=== PATIENT | female | born 1995 | race Caucasian/White ===

== ENCOUNTER 2021-07-18 17:51 | Inpatient (IN) ==
[2021-07-18] MEDS ORDERED: FLUARIX QUADRIVALENT 0.5 ML SYR IM ONE (18:25)
[2021-07-18] MEDS ORDERED: LACTATED RINGER'S 1,000 ML IV PRN (18:49)
[2021-07-18] MEDS ORDERED: PENICILLIN G POTASSIUM 6 MU in DEXTROSE 5% 250 ML IV STA (18:49)
[2021-07-18] MEDS ORDERED: OXYTOCIN 30 UNITS/500 ML BAG IV PRN ×2 (18:49→23:52)
--- NOTE | 2021-07-18 18:54 | History & Physical Report ---
Date of Service July 18, 2021 Assessment & Plan (1) : (2) Group B streptococcal infection during : Plan: 25 y/o at 39 2/7 wga presenting in labor VSS Fetus cat 1 Labor - plan arom when 2nd dose of pcn starts if not srom then GBS +, will start pcn epidural prn covid neg yesterday History of Present Illness Chief Complaint: contractions Primary Care Provider: NO PCP 25 y/o at 39 2/7 wga w/ [facility] 4/ by LMP presents w/ ctx increasing in frequency and intensity. Notes bloody show, but no LOF or VB otherwise PNI: GBS+ G1 2013 at 40 wks G2 2015 at 38 wks G3 2019 at 40 wks G4 current q28-35d cycles 11/2020 neg cytology Denies hx STIs Allergies Allergy/AdvReac Type Severity Reaction Status Date / Time bee venom protein (honey bee) Allergy Mild SWELLING Verified 07/15/21 15:36 AT SITE OF STING diphtheria,pertussis Allergy Unknown TDAP Verified 07/18/21 18:04 (acellular),te Home Medications Medication Instructions Recorded Confirmed Type prenat.vits,claus,oig-eqbd-mfjth 1 tab PO DAILY 07/17/21 07/18/21 History Patient History Medical History History of chicken pox Surgical History History of cholecystectomy Family History Mother Hypothyroid Denies family history of Ovarian cancer Breast cancer Colorectal cancer Social History Smoking Status: Never smoker Hx Alcohol Use: No Hx Substance Use: No Preferred Language: Kyrgyz Communication Ability: Effective Rehabilitation Services Director Required: No Beliefs That Will Affect Care: None marital status: marital status details: Nick Colin (31) [phone] Current Living Situation: Spouse Current Living Situation Comment: lives with spouse, 3 children, dog current occupational status: employed and student current occupation: [employer], [employer] part-time Other Information That Helps Us Care for You: No Feels Safe at Home: Yes Safety Concerns: Feels Safe At This Time Assistive Devices: None Physical Exam Genitourinary: OB Exam Abdomen: + vertex and + estimated weight (7lb) Manual OB Exam: + cervical dilation 5 cm, + cervical effacement 90% and + station -2 OB Exam Monitor Tracing: + external FHT monitor used, + external uterine monitor used (q5-8) and + category I (135/mod/+accel/-decel) Results & Data ([facility]) Vital Signs (Past 12 Hours) Vital Signs Temp Pulse Resp BP 07/18/21 18:05 98.1 F 96 H 20 117/70 07/18/21 17:58 96 H 117/70 07/18/21 17:56 98.1 F 20 Laboratory Results OB Labs: Blood Type O Positive 12/15/20 Antibody Screen NEGATIVE 12/15/20 Hemoglobin 11.6 g/dL (12.0-16.0) L 05/06/21 Hematocrit 36.3 % (37-47) L 05/06/21 Mean Corpuscular Volume 87.1 fL (80-100) 12/15/20 Platelet Count 246 K/uL (130-400) 12/15/20 Rubella IgG Antibody Immune (Immune) 12/15/20 Rapid Plasma Reagin Nonreactive (Nonreactive) 12/15/20 Hepatitis B Surface Antigen Neg (Neg) 12/15/20 HIV (1&2) Ab and P24 Ag, 4th Gener Neg (Neg) 12/15/20 Glucose 1 Hour 50 gm Load 164 mg/dl (70-130) H 05/06/21 OB Optional Labs: Chlamydia trachomatis RNA NOT DETECTED (NOT DETECTED) 12/15/20 Neisseria gonorrhoeae RNA NOT DETECTED (NOT DETECTED) 12/15/20 Labs Reviewed: cfDNA--> low risk declines msafp cf/sma negative GBS positive--mln Diagnostic Findings post plac Coding Level of Care Code None Diagnoses Z34.90 Group B streptococcal infection during O98.819; B95.1
[2021-07-18] MEDS ORDERED: BUPIVACAINE 0.25% 30 ML VIAL ONE (18:58)
[2021-07-18] MEDS ORDERED: fentaNYL 2MCG/ML ROPIVACAINE 1.25MG/ML 100 ML BAG EPI ONE (18:58)
[2021-07-18] MEDS ORDERED: ePHEDrine sulfate 50 MG/ML AMP ONE (18:58)
[2021-07-18] MEDS ORDERED: SODIUM CHLORIDE 0.9% INJ 10 ML VIAL ONE (18:58)
[2021-07-18] MEDS ORDERED: fentaNYL citrate 100 MCG/2 ML VIAL ONE (18:58)
[2021-07-18 19:10] LABS: Hematocrit (blood only) 33.7 % (37-47); Hemoglobin 10.9 g/dL (12.0-16.0); Mean Corpuscular Hemoglobin 27.5 pg (25-34); Mean Corpuscular Hgb Conc 32.3 g/dL (32-36); Mean Corpuscular Volume 84.9 fL (80-100); Platelet Count 229 K/uL (130-400); RDW Coefficient of Variation 13.9 % (11.5-14.5); RDW Standard Deviation 43.1 fL (36.4-46.3); Red Blood Count 3.97 M/uL (4.2-5.4); White Blood Count 11.24 K/uL (4.8-10.8)
[2021-07-18] MEDS ORDERED: fentaNYL 2MCG/ML ROPIVACAINE 1.25MG/ML 100 ML BAG EPI PRN (19:53)
[2021-07-18] MEDS ORDERED: NALOXONE HCL 1 MG in SODIUM CHLORIDE 0.9% 1000ML 1,000 ML IV PRN (19:53)
[2021-07-18] MEDS ORDERED: diphenhydrAMINE 50 MG/ML VIAL IV PRN (19:53)
[2021-07-18] MEDS ORDERED: ePHEDrine sulfate 50 MG/ML AMP IV PRN (19:53)
[2021-07-18] MEDS ORDERED: NALOXONE HCL 0.4 MG/1 ML VIAL/CARP IV PRN (19:53)
[2021-07-18] MEDS ORDERED: NALBUPHINE HCL INJ 10 MG/ML AMP IV PRN (19:53)
[2021-07-18] MEDS ORDERED: ONDANSETRON INJ 2 MG/ML 2 ML VIAL IV PRN (19:53)
--- NOTE | 2021-07-18 19:55 | Anesthesiology Consultation ---
Date of Service July 18, 2021 Assessment & Plan Chart Review Chart Review: Patient NOT seen in Pre Admission Testing and Acceptable Risk for Labor Epidural Consults Requested none ASA ASA2 Proposed Anesthesia Anesthesia Type: Labor Epidural and CSE Risk / Benefits Reviewed With: PT / POA / Parent / Guardian, Accepts Plan and Informed Consent Obtained History Height/Weight Height: 5 ft 6 in Weight: 73.028 kg Allergies Allergy/AdvReac Type Severity Reaction Status Date / Time bee venom protein (honey bee) Allergy Mild SWELLING Verified 07/15/21 15:36 AT SITE OF STING diphtheria,pertussis Allergy Unknown TDAP Verified 07/18/21 18:04 (acellular),te Medications Home Medications Medication Instructions Recorded Confirmed Last Taken prenat.vits,claus,cst-cffd-dphvj 1 tab PO DAILY 07/17/21 07/18/21 07/18/21 09:30 Active Medications Generic Name Dose Route Start Last Admin Trade Name Freq PRN Reason Stop Dose Admin Lactated Ringer's 1,000 mls @ 125 mls/hr 07/18/21 18:49 07/18/21 19:18 Lr IV 07/20/21 18:48 0 mls/hr .Q8H PRN Infusion L&D Protocol Protocol NPO Date Last Intake of Fluids: 07/18/21 Time Last Intake of Fluids: 19:00 Date Last Intake of Solids: 07/18/21 Time Last Intake of Solids: 15:00 Past Medical History Medical History History of chicken pox Exercise / Class Metabolic Activity II 4-5 Yardwork/Stairs/Walk up hill Past Family History Family History Mother Hypothyroid Denies family history of Ovarian cancer Breast cancer Colorectal cancer Past Surgical History Surgical History History of cholecystectomy Past Anesthesia History No Hx of Anesthesia Complications and No Family Hx of Anesthesia Complications History of PONV No Hx of PONV and No Hx of Motion Sickness Social History Smoking Status: Never smoker Hx Alcohol Use: No Hx Substance Use: No substance use type: does not use Review of Systems no chest pain or sob Physical Exam Vital Signs Last Vital Signs Temp 36.6 C 07/18/21 18:58 Pulse 76 07/18/21 19:49 Resp 20 07/18/21 18:58 BP 127/88 07/18/21 18:57 Pulse Ox 100 07/18/21 19:49 ENMT Mouth: no TMJ abnormality Thyromental Distance: > or= 3.5 Finger Breadths Mallampati Class: II Neck normal visual inspection Respiratory normal respiratory effort Auscultation: lungs clear to auscultation bilaterally Cardiovascular Rate/Rhythm: regular rate and regular rhythm Musculoskeletal Spine: normal cervical ROM Neurologic moves all extremities Psychiatric Orientation: alert and oriented x 3 Testing Laboratory Results 07/18/21 19:02
[2021-07-18] MEDS ORDERED: PENICILLIN G POTASSIUM 3 MU in DEXTROSE 5% 100 ML IV PRN (21:49)
--- NOTE | 2021-07-18 23:09 | Labor Progress Brief Note ---
Date of Service July 18, 2021 Subjective Comfortable w/ epidural, feeling occ pressure Assessment & Plan (1) : (2) Group B streptococcal infection during : Plan: 25 y/o at 39 2/7 wga presenting in labor VSS Fetus cat 1 Labor - s/p arom GBS +, pcn adequate epidural in place covid neg yesterday Physical Exam Genitourinary: Manual OB Exam: + cervical dilation 7 cm, + cervical effacement 90%, + station 0 and + amniotic fluid (AROM clear) OB Exam Monitor Tracing: + external FHT monitor used, + external uterine monitor used (q4) and + category I (125/mod/+accel/-decel) Results & Data ([facility]) Vital Signs (Past 12 Hours) Vital Signs Temp Pulse Resp BP Pulse Ox 07/18/21 23:04 98 H 124/79 97 07/18/21 22:59 74 95 07/18/21 22:54 83 96 07/18/21 22:50 74 94 07/18/21 22:49 71 121/66 94 07/18/21 22:44 81 95 07/18/21 22:40 76 94 07/18/21 22:39 75 96 07/18/21 22:34 77 116/68 95 07/18/21 22:32 74 94 07/18/21 22:30 18 07/18/21 22:29 70 95 07/18/21 22:24 71 95 07/18/21 22:19 70 96 07/18/21 22:18 68 94 07/18/21 22:17 70 112/65 07/18/21 22:14 68 95 07/18/21 22:09 67 95 07/18/21 22:06 70 94 07/18/21 22:04 70 96 07/18/21 22:02 65 110/63 07/18/21 21:59 72 94 07/18/21 21:54 69 96 07/18/21 21:49 84 98 07/18/21 21:48 96 H 121/75 07/18/21 21:44 70 100 07/18/21 21:39 79 97 07/18/21 21:34 70 99 07/18/21 21:33 71 106/71 07/18/21 21:30 18 07/18/21 21:29 71 97 07/18/21 21:24 84 96 07/18/21 21:19 86 94 07/18/21 21:18 78 109/55 L 93 07/18/21 21:14 72 96 07/18/21 21:09 73 95 07/18/21 21:04 83 93 07/18/21 21:02 66 115/58 L 07/18/21 21:01 80 20 94 07/18/21 20:59 81 94 07/18/21 20:55 83 94 07/18/21 20:54 78 93 07/18/21 20:50 97.9 F 76 94 07/18/21 20:49 71 94 07/18/21 20:45 75 109/58 L 07/18/21 20:44 77 96 07/18/21 20:43 72 94 07/18/21 20:41 75 112/61 07/18/21 20:39 90 96 07/18/21 20:36 71 111/75 07/18/21 20:34 90 96 07/18/21 20:31 72 113/78 94 07/18/21 20:30 18 07/18/21 20:29 82 95 07/18/21 20:24 83 94 07/18/21 20:23 80 94 07/18/21 20:20 75 115/64 07/18/21 20:19 80 95 07/18/21 20:17 80 108/58 L 07/18/21 20:16 82 115/60 07/18/21 20:15 18 07/18/21 20:14 77 97 07/18/21 20:10 76 18 108/56 L 07/18/21 20:09 80 98 07/18/21 20:08 81 101/55 L 07/18/21 20:07 84 90 07/18/21 20:05 18 07/18/21 20:04 70 99 07/18/21 20:02 86 93 07/18/21 19:59 82 98 07/18/21 19:54 81 100 07/18/21 19:49 76 100 07/18/21 19:44 81 100 07/18/21 19:39 76 100 07/18/21 19:34 73 99 07/18/21 18:58 97.9 F 20 07/18/21 18:57 93 H 127/88 07/18/21 18:05 98.1 F 96 H 20 117/70 07/18/21 17:58 96 H 117/70 07/18/21 17:56 98.1 F 20 Coding Level of Care Code None Diagnoses Z34.90 Group B streptococcal infection during O98.819; B95.1
[2021-07-18] MEDS ORDERED: miSOPROStoL 200 MCG TAB PR ONE (23:52)
[2021-07-18] MEDS ORDERED: BENZOCAINE 20% AER SPR 82.5 GM CAN EXT PRN (23:52)
[2021-07-18] MEDS ORDERED: ACETAMINOPHEN 325 MG TAB PO PRN (23:52)
[2021-07-18] MEDS ORDERED: IBUPROFEN 600 MG TAB PO PRN (23:52)
[2021-07-18] MEDS ORDERED: HYDROCORTISONE ACETATE 25 MG SUPP PR PRN (23:52)
[2021-07-18] MEDS ORDERED: DIPHTHERIA/TETANUS/PERTUSSIS 0.5 ML SYR/VIAL IM ONE (23:52)
--- NOTE | 2021-07-18 23:53 | Delivery Summary ---
Vaginal Delivery Summary Date of Service July 18, 2021 Vaginal Delivery Summary [facility] PREOPERATIVE DIAGNOSIS: 1. Single intrauterine at 39 2/7 wga 2. Labor 3. GBS+ POSTOPERATIVE DIAGNOSIS: 1. Single intrauterine at 39 2/7 wga 2. Labor 3. GBS+ 4. Delivered PROCEDURE: 1. Normal spontaneous vaginal delivery. SURGEON: Carlyn Claros MD ANESTHESIA: Epidural. ESTIMATED BLOOD LOSS: 300 mL FLUIDS: Continuous LR. URINE OUTPUT: None. COMPLICATIONS: None. CONDITION: Stable. INDICATIONS: 25 y/o at 39 2/7 wga presented with contractions increasing in frequency and intensity. Denied LOF, VB. She was checked and found to be 5cm. She was started on penicillin for GBS prophylaxis and received an epidural for pain control. Once penicillin treatment was adequate, she underwent artificial rupture of membranes at 7cm and approximately 30 minutes later was found to be complete and desired to push FINDINGS: A viable male , weight pending with Apgars of 8 and 9 at 1 and 5 minutes respectively. SPECIMEN: Cord blood OPERATIVE REPORT: The patient progressed to 10 cm, 100% effaced and +2 station, pushed over intact perineum with anesthesia to deliver a viable male infant, weight and Apgars as above. Head of delivered in YANELY position. No nuchal cord was present. Body and shoulders were delivered without difficulty. was delivered to maternal abdomen and nursing staff. Delayed cord clamping was performed for 60 seconds. Cord was clamped and cut. Cord blood was obtained. Placenta delivered spontaneously intact with 3-vessel cord. IV oxytocin and fundal massage were given however there was noted to be some uterine atony so bimanual massage and 1000mcg cytotec PA was placed for excellent hemostasis. Vagina, cervix, perineum, and placenta were inspected. Few hemostatic vaginal abrasions were noted and not needed to be repaired. Sponge and needle counts correct x2. No sponges were left behind. Mother and stable in immediate period. [facility] Vaginal Delivery Charge Vaginal Delivery Codes: 76500 global code for the antepartum, delivery, and post- Delivery Type Details: [facility]
[2021-07-19 07:15] LABS: Hemoglobin 10.2 g/dL (12.0-16.0); Mean Corpuscular Hgb Conc 31.9 g/dL (32-36); Mean Corpuscular Volume 84.7 fL (80-100); Mean Platelet Volume 10.6 fL (7.4-10.4); Platelet Count 209 K/uL (130-400); RDW Standard Deviation 43.1 fL (36.4-46.3); Red Blood Count 3.78 M/uL (4.2-5.4); White Blood Count 12.36 K/uL (4.8-10.8)
--- NOTE | 2021-07-19 07:28 | Obstetrical Progress Note ---
Date of Service July 19, 2021 Assessment & Plan (1) Encounter for care and examination after delivery: Plan: 25 yo PPD1 s/p at 39 2/7 weeks. -Continue routine care -Vitals reviewed- HDS, afebrile -O+, GBS+, treated with pcn, Rubella immune -Encourage ambulation, regular diet -Pain control with ibuprofen, acetaminophen PRN -Encourage -F/u in 6 weeks withOB, likely d/c tomorrow. Admission and Anticipated Discharge Date Admission Date: July 18, 2021 Supervising Physician Co-Signing Physician Notes Resident Physician Supervision Note: I interviewed and examined the patient. Discussed with Dr. Bell and agree with findings and plan as documented in the note. Any exceptions or clarifications are listed here: PP1 s/p , doing well. VSS, exam benign and wnl. Meeting pp milestones, plan for d/c tomorrow Documented By: Carlyn Claros MD Subjective 25 yo PPD1 s/p at 39 2/7 weeks. Pt doing well and lying with at the time of exam. Breasting feeding well w/o difficulty. Ambulating and voiding well. Lochia mild. Eatin and drinking. Pt has no pain. Has no other complaints at this time. Review of Systems Review of Systems: All systems reviewed & are unremarkable except as noted in HPI & below Physical Exam Physical Exam: General: Alert, oriented, no acute distress Cardiac: Regular rate and rhythm, normal S1, S2. No murmurs appreciated. Respiratory: Clear to auscultation b/l with good air flow entry, symmetric chest rise and fall. No wheezes or crackles. No increased work of breathing or accessory muscle use Abdomen: Soft, nontender, nondistended. Fundus firm and palpable at level of umbilicus. No guarding or rebound. Skin: No rashes or lesions Extremities: Warm, dry, well-perfused with capillary refill <2s b/l. No lower extremity edema, erythema or swelling. Negative Tato's sign b/l. Results & Data ([facility]) Vital Signs (Past 12 Hours) Vital Signs Temp Pulse Pulse Resp BP BP Pulse Ox 07/19/21 04:30 36.6 C 73 18 106/69 07/19/21 02:00 36.7 C 86 18 120/67 07/19/21 01:45 75 20 110/60 07/19/21 01:30 65 103/55 L 07/19/21 01:15 65 18 103/55 L 07/19/21 01:00 64 107/68 07/19/21 00:45 84 20 109/63 07/19/21 00:30 20 116/58 L 07/19/21 00:15 65 20 121/66 07/19/21 00:00 65 18 113/59 L 07/18/21 23:45 87 18 127/57 L 07/18/21 23:39 96 H 94 07/18/21 23:37 82 94 07/18/21 23:34 91 H 94 07/18/21 23:31 18 07/18/21 23:29 97 H 99 07/18/21 23:24 85 96 07/18/21 23:19 76 96 07/18/21 23:17 67 119/63 07/18/21 23:14 66 96 07/18/21 23:10 71 94 07/18/21 23:09 72 96 07/18/21 23:04 98 H 124/79 97 07/18/21 23:00 36.8 C 18 07/18/21 22:59 74 95 07/18/21 22:54 83 96 07/18/21 22:50 74 94 07/18/21 22:49 71 121/66 94 07/18/21 22:44 81 95 07/18/21 22:40 76 94 07/18/21 22:39 75 96 07/18/21 22:34 77 116/68 95 07/18/21 22:32 74 94 07/18/21 22:30 18 07/18/21 22:29 70 95 07/18/21 22:24 71 95 07/18/21 22:19 70 96 07/18/21 22:18 68 94 07/18/21 22:17 70 112/65 07/18/21 22:14 68 95 07/18/21 22:09 67 95 07/18/21 22:06 70 94 07/18/21 22:04 70 96 07/18/21 22:02 65 110/63 07/18/21 21:59 72 94 07/18/21 21:54 69 96 07/18/21 21:49 84 98 07/18/21 21:48 96 H 121/75 07/18/21 21:44 70 100 07/18/21 21:39 79 97 07/18/21 21:34 70 99 07/18/21 21:33 71 106/71 07/18/21 21:30 18 07/18/21 21:29 71 97 07/18/21 21:24 84 96 07/18/21 21:19 86 94 07/18/21 21:18 78 109/55 L 93 07/18/21 21:14 72 96 07/18/21 21:09 73 95 07/18/21 21:04 83 93 07/18/21 21:02 66 115/58 L 07/18/21 21:01 80 20 94 07/18/21 20:59 81 94 07/18/21 20:55 83 94 07/18/21 20:54 78 93 07/18/21 20:50 36.6 C 76 94 07/18/21 20:49 71 94 07/18/21 20:45 75 109/58 L 07/18/21 20:44 77 96 07/18/21 20:43 72 94 07/18/21 20:41 75 112/61 07/18/21 20:39 90 96 07/18/21 20:36 71 111/75 07/18/21 20:34 90 96 07/18/21 20:31 72 113/78 94 07/18/21 20:30 18 07/18/21 20:29 82 95 07/18/21 20:24 83 94 07/18/21 20:23 80 94 07/18/21 20:20 75 115/64 07/18/21 20:19 80 95 07/18/21 20:17 80 108/58 L 07/18/21 20:16 82 115/60 07/18/21 20:15 18 07/18/21 20:14 77 97 07/18/21 20:10 76 18 108/56 L 07/18/21 20:09 80 98 07/18/21 20:08 81 101/55 L 07/18/21 20:07 84 90 07/18/21 20:05 18 07/18/21 20:04 70 99 07/18/21 20:02 86 93 07/18/21 19:59 82 98 07/18/21 19:54 81 100 07/18/21 19:49 76 100 07/18/21 19:44 81 100 07/18/21 19:39 76 100 07/18/21 19:34 73 99 07/18/21 18:58 36.6 C 20 07/18/21 18:57 93 H 127/88 07/18/21 18:05 36.7 C 96 H 20 117/70 07/18/21 17:58 96 H 117/70 07/18/21 17:56 36.7 C 20
[2021-07-19] MEDS ORDERED: FERROUS SULFATE 325 MG TAB PO SCH (08:00)
[2021-07-19] MEDS ORDERED: PRENATAL VITAMIN 1 TAB PO SCH (08:00)
[2021-07-19] MEDS ORDERED: DOCUSATE SODIUM 100 MG CAP PO SCH (08:00)
--- NOTE | 2021-07-19 08:13 | Anesthesiology Progress Note ---
Date of Service July 19, 2021 Anesthesia Post Procedure Vital Signs Vital Signs: Temp Pulse Pulse Resp BP BP Pulse Ox 07/19/21 07:09 36.6 C 66 18 97/57 L 97 07/19/21 04:30 36.6 C 73 18 106/69 07/19/21 02:00 36.7 C 86 18 120/67 07/19/21 01:45 75 20 110/60 07/19/21 01:30 65 103/55 L 07/19/21 01:15 65 18 103/55 L 07/19/21 01:00 64 107/68 07/19/21 00:45 84 20 109/63 07/19/21 00:30 20 116/58 L 07/19/21 00:15 65 20 121/66 07/19/21 00:00 65 18 113/59 L 07/18/21 23:45 87 18 127/57 L 07/18/21 23:39 96 H 94 07/18/21 23:37 82 94 07/18/21 23:34 91 H 94 07/18/21 23:31 18 07/18/21 23:29 97 H 99 07/18/21 23:24 85 96 07/18/21 23:19 76 96 07/18/21 23:17 67 119/63 07/18/21 23:14 66 96 07/18/21 23:10 71 94 07/18/21 23:09 72 96 07/18/21 23:04 98 H 124/79 97 07/18/21 23:00 36.8 C 18 07/18/21 22:59 74 95 07/18/21 22:54 83 96 07/18/21 22:50 74 94 07/18/21 22:49 71 121/66 94 07/18/21 22:44 81 95 07/18/21 22:40 76 94 07/18/21 22:39 75 96 07/18/21 22:34 77 116/68 95 07/18/21 22:32 74 94 07/18/21 22:30 18 07/18/21 22:29 70 95 07/18/21 22:24 71 95 07/18/21 22:19 70 96 07/18/21 22:18 68 94 07/18/21 22:17 70 112/65 07/18/21 22:14 68 95 07/18/21 22:09 67 95 07/18/21 22:06 70 94 07/18/21 22:04 70 96 07/18/21 22:02 65 110/63 07/18/21 21:59 72 94 07/18/21 21:54 69 96 07/18/21 21:49 84 98 07/18/21 21:48 96 H 121/75 07/18/21 21:44 70 100 07/18/21 21:39 79 97 07/18/21 21:34 70 99 07/18/21 21:33 71 106/71 07/18/21 21:30 18 07/18/21 21:29 71 97 07/18/21 21:24 84 96 07/18/21 21:19 86 94 07/18/21 21:18 78 109/55 L 93 07/18/21 21:14 72 96 07/18/21 21:09 73 95 07/18/21 21:04 83 93 07/18/21 21:02 66 115/58 L 07/18/21 21:01 80 20 94 07/18/21 20:59 81 94 07/18/21 20:55 83 94 07/18/21 20:54 78 93 07/18/21 20:50 36.6 C 76 94 07/18/21 20:49 71 94 07/18/21 20:45 75 109/58 L 07/18/21 20:44 77 96 07/18/21 20:43 72 94 07/18/21 20:41 75 112/61 07/18/21 20:39 90 96 07/18/21 20:36 71 111/75 07/18/21 20:34 90 96 07/18/21 20:31 72 113/78 94 07/18/21 20:30 18 07/18/21 20:29 82 95 07/18/21 20:24 83 94 07/18/21 20:23 80 94 07/18/21 20:20 75 115/64 07/18/21 20:19 80 95 07/18/21 20:17 80 108/58 L 07/18/21 20:16 82 115/60 07/18/21 20:15 18 07/18/21 20:14 77 97 07/18/21 20:10 76 18 108/56 L 07/18/21 20:09 80 98 07/18/21 20:08 81 101/55 L 07/18/21 20:07 84 90 07/18/21 20:05 18 07/18/21 20:04 70 99 07/18/21 20:02 86 93 07/18/21 19:59 82 98 07/18/21 19:54 81 100 07/18/21 19:49 76 100 07/18/21 19:44 81 100 07/18/21 19:39 76 100 07/18/21 19:34 73 99 07/18/21 18:58 36.6 C 20 07/18/21 18:57 93 H 127/88 07/18/21 18:05 36.7 C 96 H 20 117/70 07/18/21 17:58 96 H 117/70 07/18/21 17:56 36.7 C 20 Pain Intensity Bilateral Abdomen: Pain Intensity: 1 Transfer of Care Handoff Completed per policy Notes Mental Status: alert / awake / arousable and participated in evaluation Patient Amnestic to Procedure: Yes Nausea / Vomiting: adequately controlled Pain: adequately controlled Airway Patency, RR, SpO2: stable & adequate BP & HR: stable & adequate Hydration State: stable & adequate Anesthetic Complications: no major complications apparent and Pt Satisfied with anesthetic care
[2021-07-19] MEDS ORDERED: bisacodyL 5 MG TABEC PO SCH (20:00)
[2021-07-20] MEDS ORDERED: bisacodyL 10 MG SUPP PR PRN
== END 2021-07-20 00:40 | disposition home or self-care (01) | DRG 807 ==
LOC: OPB 17:51 → 4S1 17:53 → 4E2 07-19 02:05